=== PATIENT | female | born 1965 | race Caucasian/White ===

== ENCOUNTER 2019-11-08 19:12 | Emergency (ER) | payer OTHER ==
[2019-11-08 19:20] VITALS: BP 134/78; PULSE 77; TEMP 98.6; BMI 31.1
[2019-11-08] MEDS ORDERED: ACETAMINOPHEN 500 MG TABLET (FP) PO ONE (20:16)
[2019-11-08] MEDS ORDERED: ACETAMINOPHEN 325 MG TABLET (FP) ONE (20:25)
--- NOTE | 2019-11-08 20:57 | PDOC ---
History of Present Illness - General Chief Complaint: Back Pain Stated Complaint: FALL Time Seen by Provider: 11/08/19 19:33 - History of Present Illness Initial Comments: 11/08/19 20:52 54-year-old female without comorbidities presents for evaluation of neck mid and lower back pain as well as right-sided rib pain after a fall [place] wet floor in a [place] today. She did not hit her head no loss of consciousness post injury nausea vomiting or visual changes only right-sided rib neck and back pain. No radicular symptoms saddle anesthesia retention or incontinence. Past History - Medical History Allergies/Adverse Reactions: Allergies Allergy/AdvReac Type Severity Reaction Status Date / Time aspirin Allergy Verified 04/28/15 10:54 Penicillins Allergy Verified 04/28/15 10:54 Home Medications: Ambulatory Orders Acetaminophen W/ Codeine #3 [Tylenol # 3 -] 1 tab PO Q6H PRN #10 tablet 04/28/15 Phenobarb/Hyoscy/Atropine/Scop [ Tablet] 16.2 mg PO BID PRN #3 tablet 04/28/15 Polyethylene Glycol 3350 [Miralax (For Bowel Prep) -] 255 gm PO BID PRN #1 btl 04/28/15 Anemia: Yes Asthma: No Cancer: No Cardiac Disorders: Yes ("RAPID HEARTBEAT") CVA: No COPD: No CHF: No Dementia: No Diabetes: No GI Disorders: No Disorders: No HTN: No Hypercholesterolemia: No Kidney Stones: Yes Liver Disease: No Seizures: No Thyroid Disease: No - Surgical History Abdominal Surgery: Yes (ulcers/ hernia/tumor sx) Cardiac Surgery: No Cholecystectomy: Yes Lung Surgery: No Neurologic Surgery: No Orthopedic Surgery: No - Reproductive History Is Patient Now?: No - Immunization History Immunization Up to Date: Yes - Psycho-Social/Smoking History Smoking Status: No Smoking History: Never smoked Number of Cigarettes Smoked Daily: 0 - Substance Abuse Hx (Audit-C & DAST Scrn) How often the patient has a drink containing alcohol: Never Score: In Men: 4 or > Positive; In Women: 3 or > Positive: 0 Screen Result (Pos requires Nsg. Audit-10AR): Negative In the last yr the pt used illegal drug/Rx for NonMed reason: No Score: Yes response is considered Positive: 0 Screen Result (Positive result requires Nsg. DAST-10): Negative Review of Systems - Review of Systems Musculoskeletal: Yes: Back Pain, Neck Pain *Physical Exam - Vital Signs Last Vital Signs Temp Pulse Resp BP Pulse Ox 98.6 F 77 19 134/78 100 11/08/19 19:17 11/08/19 19:17 11/08/19 19:17 11/08/19 19:17 11/08/19 19:17 - Physical Exam 11/08/19 20:53 Cervical spine skin color and temperature normal range of motion is slightly limited. There is no midline tenderness. Mild bilateral paracervical musculature spasm and tenderness. 5 out of 5 strength bilateral upper extremities without gross sensorimotor deficits neurovascular intact. My lumbar spine exam Lumbar spine skin color temperature normal range of motion is slightly decreased . No midline tenderness. Moderate bilateral paralumbar musculature spasm and tenderness 5 out of 5 strength bilateral lower extremities without gross sensorimotor deficits thighs and calves are soft and nontender neurovascular intact No respiratory distress normal breath sounds ED Treatment Course - RADIOLOGY Radiology Studies Ordered: Category Date Time Status CHEST PA & LAT [RAD] Stat Radiology 11/08/19 19:38 Taken RIBS RIGHT SIDE [RAD] Stat Radiology 11/08/19 19:38 Taken SPINE-CERVICAL [RAD] Stat Radiology 11/08/19 19:38 Taken SPINE-LUMBAR ONLY [RAD] Stat Radiology 11/08/19 19:38 Taken SPINE-THORACIC [RAD] Stat Radiology 11/08/19 19:38 Taken - Medications Given in the ED: ED Medications Discontinued Medications Generic Name Dose Route Start Last Admin Trade Name Freq PRN Reason Stop Dose Admin Acetaminophen 1,000 mg 11/08/19 20:16 11/08/19 20:24 Tylenol - PO 11/08/19 20:17 1,000 mg ONCE ONE Administration Medical Decision Making - Medical Decision Making 11/08/19 20:53 X-rays of the cervical thoracic and lumbar spine show no evidence of fracture. There is a reversal of the cervical lordosis with osteophyte formation anteriorly bridging lumbar spine shows mild straightening without acute fracture trauma or destructive process mild scoliotic curve on the thoracic films. No pneumothorax on chest x-ray no rib fracture on right rib series. Tylenol and Motrin as directed for pain follow-up with orthopedics I have reviewed the pathophysiology with the patient. They are in agreement with the treatment plan all questions were answered to their satisfaction. Understanding for follow-up without fail was also conveyed to the patient. Again they are in agreement. Discharge - Discharge Information Problems reviewed: Yes Clinical Impression/Diagnosis: Cervical strain, Strain of fascia at thorax level, Lumbar spine strain, Contusion of rib on right side Condition: Stable Disposition: HOME - Admission No - Follow up/Referral Referrals: Allie Grey MD [Primary Care Provider] - Bari Lo DO [Staff Physician] - - Patient Discharge Instructions Additional Instructions: Return to the emergency room for worsening symptoms and without fail follow-up with orthopedic surgery as well as your primary care physician in 1 to 2 days for further evaluation and treatment options. Tylenol and Motrin as directed for pain. - Post Discharge Activity
== END 2019-11-08 21:15 | disposition home or self-care (01) ==
LOC: JERFT 19:12
DX: S16.1XXA Strain of muscle, fascia and tendon at neck level, initial encounter (principal); S29.019A Strain of muscle and tendon of unspecified wall of thorax, initial encounter; S39.012A Strain of muscle, fascia and tendon of lower back, initial encounter; S20.211A Contusion of right front wall of thorax, initial encounter
CPT/HCPCS: 71046-TC-FY; 71101-TC-RT-FY; 72050-TC-FY; 72070-TC-FY; 72100-TC-FY; 99284-25

== ENCOUNTER 2022-12-28 15:48 | Emergency (ER) | payer OTHER ==
[2022-12-28 15:57] VITALS: BP 139/67; PULSE 70; RESP 18; TEMP 97.4; BMI 28.9
[2022-12-28] MEDS ORDERED: SODIUM CHLORIDE 0.9% 500 ML INFUS.BAG IV ONE (16:39)
[2022-12-28 17:32] LABS: URINE APPEARANCE CLEAR; URINE BILIRUBIN NEGATIVE (NEGATIVE); URINE COLOR YELLOW; URINE GLUCOSE (UA) NEGATIVE (NEGATIVE); URINE KETONE NEGATIVE (NEGATIVE); URINE LEUK ESTERASE NEGATIVE (NEGATIVE); URINE NITRITE NEGATIVE (NEGATIVE); URINE PROTEIN NEGATIVE (NEGATIVE); URINE UROBILINOGEN 0.2 mg/dL (0.2-1.0)
[2022-12-28 17:38] LABS: BASO % 0.5 % (0-2.0); EOS % 2.6 % (0-4.5); HEMATOCRIT 37.7 % (32.4-45.2); HEMOGLOBIN 12.8 GM/dL (10.7-15.3); LYMPH % 34.1 % (8-40); MCH 28.3 pg (25.7-33.7); MEAN CELL VOLUME 83.2 fl (80-96); MEAN PLT VOLUME 9.3 fl (7.5-11.1); MONO % 6.5 % (3.8-10.2); NEUT % 56.3 % (42.8-82.8); PLATELET COUNT 313 10^3/uL (134-434); RBC 4.54 M/mm3 (3.60-5.2); RDW 13.9 % (11.6-15.6); WHITE BLOOD COUNT 5.9 K/mm3 (4.0-10.0)
[2022-12-28 17:52] LABS: POTASSIUM 4.7 mmol/L (3.5-5.1)
[2022-12-28 17:54] LABS: CALCIUM 8.8 mg/dL (8.5-10.1)
[2022-12-28 17:55] LABS: ALBUMIN 3.6 g/dl (3.4-5.0); MAGNESIUM 2.3 mg/dL (1.8-2.4)
[2022-12-28 17:58] LABS: CREATININE 0.7 mg/dL (0.55-1.3)
[2022-12-28 17:59] LABS: TOT PROT 7.2 g/dl (6.4-8.2)
[2022-12-28] MEDS ORDERED: ONDANSETRON *ODT* 4 MG TABLET SL ONE (17:59)
[2022-12-28 18:00] LABS: BILIRUBIN,TOTAL 0.2 mg/dL (0.2-1)
[2022-12-28] MEDS ORDERED: ONDANSETRON *ODT* 4 MG TABLET ONE (18:16)
== END 2022-12-28 22:07 | disposition home or self-care (01) ==
LOC: JER 15:48
DX: R55 Syncope and collapse (principal); R42 Dizziness and giddiness; R51.9 Headache, unspecified; R07.9 Chest pain, unspecified; R11.0 Nausea; R19.7 Diarrhea, unspecified; R53.1 Weakness; Z20.822 Contact with and (suspected) exposure to COVID-19
CPT/HCPCS: 0241U-QW; 36415; 71045-TC-FY; 80053; 81003; 82550; 83735; 84443; 84484; 85025; 87086; 93005; 93010; 99285-25; Q0162